=== PATIENT | female | born 1950 | race Caucasian/White ===

== ENCOUNTER 2022-09-20 08:39 | Outpatient (CLI) | payer MEDICARE, OTHER ==
--- NOTE | 2022-09-20 10:07 | SLEEP CARE CONSULTATION ---
Information from patient questionnaire entered by Inderjit Bruner. I have reviewed and concur with the information entered by Inderjit Bruner. This document represents the service I personally performed and the decisions made by me, Bernice Griggs MD, [facility]. History of Present Illness Service Date and Time: 09/20/2022 0839 Reason for Visit: New patient Chief Complaint: reports: Other (ROUTINE VISIT O2 LEVELS DROP) Usual bedtime: 9-10PM Time it takes to fall asleep: NOT SURE Snores at night: No Observed to quit breathing while asleep: No Sleeps alone due to snoring: Yes Number of times waking at night: 2-3 Reasons for waking at night: reports: Pain, Other (NOISE STRESS) Toss, Turn, or Twitch while sleeping: Yes Recalls having dreams: No Usually gets out of bed at: 4-430AM Feels refreshed in the morning: Yes Morning headache: No Sleepy or fatigued during the day: Yes Takes day naps: No Dreams during day naps: No Prior sleep studies: Yes Year and Where: [facility] Additional HPI information: I had the pleasure of seeing Ms. Marshall today regarding obstructive sleep apnea-hypopnea. As you know, she is a 71 year old lady who was diagnosed with the sleep-disordered breathing at [facility] in [place] about 12 years. The AHI was 5.4 and micki oxygen saturation, 92%. She was prescribed a CPAP device set at 5 10 cmH2O. She has a Respironics DreamStation 2 that is a replacement for her recalled DreamStation 1. She uses almost every night and all night. The compliance data show usage in 25 out of the past 30 nights, averaging 5.4 hours a night. The > 4 hour compliance rate for the past 30 days is 60%. The residual AHI is 0 and average air leak is 0 L/minute. She wears a ResMed AirTouch F-20 full face mask. She gets his supplies from [employer]. She finds the treatment very beneficial. - Parasomnia Symptoms Ever been unable to move upon waking from sleep: No Walks in sleep: No Talks in sleep: No Ever acted out dreams in sleep: No Ever felt weak in the knees when startled or emotional: No Bothered by creepy, crawly, restless sensations in legs: No Problems with memory or concentration: No Subjective Initial [place] Sleepiness Scale score: 11 (09/20/22) Past Medical History Past Medical History: reports: Arthritis, Asthma, Other (GLUXCOMA) Social History The patient's occupation is a [employer]. Patient is and lives in [place]. Have you smoked in the past 12 months: No Caffeine use: Yes Family History Family history of sleep disordered breathing: No Allergies and Home Medications Known drug allergies: Yes (SULFA, CODEINE) Drug allergies reviewed: Yes Home medication list reviewed: Yes Review of Systems Cardiovascular: reports: leg or foot swelling Respiratory: denies: shortness of breath, wheeze, sputum production, chronic cough, other Gastrointestinal: denies: heartburn, difficulty swallowing, nausea, vomitting, diarrhea, abdominal pain, other Urinary: denies: incontinence, frequency, urgency, impotence, other Neurological: reports: headaches Ear/Nose/Throat: reports: dry mouth/throat, wisdom teeth removed Endocrine: reports: thyroid disease, history of goiter, sluggishness Immunologic: reports: sneezing, itching Physical Exam Vital signs obtained and entered by: INDERJIT Lees MA Blood Pressure: 134/82 (LEFT ARM) Cuff size: regular Heart Rate: 72 O2 Saturation: 98 Height: 5 ft 5 in Weight: 156 lb 6.4 oz Body Mass Index: 26.0 BMI Classification: Overweight Neck circumference: 13 Mood/affect: Normal HEENT: No craniofacial malformation Nostrils: patent to airflow Turbinates: normal Septum: midline Mouth and throat: normal Soft palate: normal Hard palate: normal Uvula: normal Uvula visualization: 50% Mallampati Class II Tongue: normal in size Tonsils: absent bilaterally Chin and jaw: normal size and position Neck: normal w/o lymphadenopathy or thyromegaly Heart: regular rate and rhythm, murmur Lungs: clear bilaterally Abdomen: soft, non-tender Extremities: 1+ edema Neurologic: intact, no focal deficits Impression and Plan IMPRESSION: 1. Obstructive Sleep Apnea-Hypopnea Syndrome, mild, as previously diagnosed. The patient has [id number] compliance, but noticeable clinical improvement. She would like to continue to use her CPAP. The current pressure setting appears effective and comfortable. I encourage her to use the CPAP more, especially when she becomes eligible for a new machine next year. Plan: 1. Refill supplies. 2. Continue with autoCPAP set at 5 10 cmH2O. 3. Return for follow up in a year or earlier if there is any problem. She will be eligible for a new machine at that time. Prescriptions: Device supplies Follow up with Sleep Care in: 1 year Visit Type: In Office Time Spent with Patient (minutes): 15 Provider Statement: I spent 100% of the Face to Face Visit with the patient with greater than 50% spent counseling the patient and coordination of care.
[2022-09-20 10:10] VITALS: BP 134/82
== END 2022-09-20 08:40 | disposition home or self-care (01) ==
LOC: SC 08:39
PROVIDERS: ATTEND Internal Medicine Pulmonary Disease
DX: G47.33 Obstructive sleep apnea (adult) (pediatric) (principal); E66.3 Overweight; Z68.26 Body mass index [BMI] 26.0-26.9, adult
CPT/HCPCS: 99202; G0463; 99212

== ENCOUNTER 2023-05-03 10:09 | Outpatient (CLI) | payer MEDICARE, OTHER ==
--- NOTE | 2023-05-03 12:18 | XRAY Report ---
PROCEDURE: Foot 3+V RT (Weight Bearing) INDICATIONS: RIGHT FOOT PAIN TECHNIQUE: 3 weightbearing views of the right foot COMPARISON: None. FINDINGS: Small cortical irregularity at the lateral fifth proximal phalanx base. Mild hallux is herniation of the first MTP with medial bunion formation. Mild first MTP and interphalangeal joint degeneration. Mi ld pesplanus alignment. Mild plantar calcaneal enthesophyte. Surgical clips are seen projecting over the soft tissues along the dorsal aspect of the foot. IMPRESSION: 1.Small cortical irregularity of the lateral fifth proximal phalanx base, correlate with trauma, smal l fracture is not excluded. 2.Mild interphalangeal joint degeneration. 3.Hallux valgus configuration of the first MTP joint with medial bunion formation. 4.Mild pes planus alignment. Reviewed by: Medhat Jones MD on 05/03/2023 12:16 PM PST Approved by: Medhat Jones MD on 05/03/2023 12:16 PM PST Station ID: [id number]
== END 2023-05-03 10:10 | disposition home or self-care (01) ==
LOC: DI 10:09
PROVIDERS: ATTEND Podiatrist
DX: M19.071 Primary osteoarthritis, right ankle and foot (principal); M20.11 Hallux valgus (acquired), right foot; M21.611 Bunion of right foot; M21.41 Flat foot [pes planus] (acquired), right foot; R93.6 Abnormal findings on diagnostic imaging of limbs

== ENCOUNTER 2023-05-17 06:53 | Outpatient (CLI) | payer MEDICARE, OTHER ==
--- NOTE | 2023-05-17 13:36 | MRI Report ---
PROCEDURE: Foot RT WO INDICATIONS: R FOOT PAIN TECHNIQUE: Noncontrast sagittal T1 spin echo and T2 fast spin echo with fat saturation, long-axis T1 spin echo a nd T2 fast spin echo with fat saturation, short-axis proton density fast spin echo and T2 fast spin e cho with fat saturation through the forefoot. COMPARISON: Right foot radiographs 05/03/2023. FINDINGS: Image quality: Excellent. Bones and joints: No acute osseous fracture or trabecular bone injury. Mild hallux valgus. Mild/mode rate degenerative tenderness over the first metatarsophalangeal joint. Trace lateral subluxation of t he hallux sesamoids. Mild scattered degenerative changes of interphalangeal joints of the toes. Mild enhancement and is at the tarsometatarsal joints with areas of subpleural cystic changes. No intraoss eous lesions. Soft tissues: Mild edema is seen surrounding the central tendinous band of the abductor digiti minim i muscle at the level of the metatarsal base and proximal shaft. The visualized plantar foot muscles demonstrate normal signal and bulk. Visualized flexor and extensor tendons appear intact, without te nosynovitis. Mild subcutaneous edema or decreased adventitial bursal effusion plantar to the fifth me tatarsal head. Sagittal images demonstrate no evidence for plantar plate tears. IMPRESSION: 1.Mild hallux valgus. 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 2.Additional mild scattered degenerative changes in the midfoot and forefoot. 3.Mild intramuscular edema in the abductor digiti minimi muscle is suspicious for a low grade strain versus soft tissue contusion. 4.Mild subcutaneous edema versus trace adventitial bursal effusion in the subcutaneous tissues planta r to the fifth metatarsal head. Reviewed by: Jere Troy MD on 05/17/2023 1:35 PM PST Approved by: Jere Troy MD on 05/17/2023 1:35 PM PST Station ID: [id number]
== END 2023-05-17 06:54 | disposition home or self-care (01) ==
LOC: DI 06:53
PROVIDERS: ATTEND Podiatrist
DX: M20.11 Hallux valgus (acquired), right foot (principal); M19.071 Primary osteoarthritis, right ankle and foot; R93.6 Abnormal findings on diagnostic imaging of limbs; R93.89 Abnormal findings on diagnostic imaging of other specified body structures

== ENCOUNTER 2023-09-22 08:14 | Outpatient (CLI) | payer MEDICARE, OTHER ==
--- NOTE | 2023-09-22 08:45 | Sleep Patient Instructions ---
Sleep Center Visit Summary - Patient Visit Information Reason for Visit: Annual follow-up - Patient Instructions Additional Instructions: You will continue with CPAP therapy with pressure set at 5-10 cmH2O. A supply prescription will be updated with your DME. Please follow up with the sleep care office in 1 year. - Clinic Information Contact: [facility] [address] [place] [address] [email or web address] T: [phone]
--- NOTE | 2023-09-22 08:50 | SLEEP CARE CONSULTATION ---
Information from patient questionnaire entered by Inderjit Bruner. I have reviewed and concur with the information entered by Inderjit Bruner. This document represents the service I personally performed and the decisions made by me, Myesha Cooley ARNP. History of Present Illness Service Date and Time: 09/22/2023 0814 Previous diagnosis: Mild, Obstructive Sleep Apnea-Hypopnea Syndrome AHI: 5.4 (on 06/26/2010) Reason for follow up: annual (LAST SEEN 09/2022) Equipment type: CPAP (Dreamstation 2) Equipment obtained from: [employer] (in [place], [facility]) Mask style: Full face Mask brand: Resmed (AirTouch F20) Backup mask available: Yes Last cushion change: last week or so Prior sleep studies: Yes Year and Where: [facility] HPI additional information: STEPHENIE SHAH was diagnosed to have mild, AHI 5.4, obstructive sleep apnea- hypopnea syndrome and returned today for CPAP therapy annual follow-up. Sleep Study - Results Prior sleep studies: Yes Year and Where: [facility] CPAP Compliance Data - Data Reviewed with Patient Average duration of nightly device use: 5 hours 58 minutes Compliance rate %: 86.7 (06/24/2023-09/21/2023; 86/90 days used) Current pressure setting (cmH2O): 5-10 Average residual AHI: 0.8 Central apnea: 0.1 Obstructive apnea: 0.1 Hypopnea: 0.6 Average large leak: 0 secs Subjective Missed days of use due to: reports: family emergency Patient concerns: denies: aerophagia, mask discomfort, air blowing in eyes, mask leak noise, condensation in mask/hose, nasal congestion, dry mouth, nose, throat, epistaxis Observed to snore while using device: No Current pressure setting perceived as: comfortable On therapy, patient: reports: sleeping better, awakening more refreshed, being more awake and alert during the day, more rested overall. denies: drowsiness while driving (she is legally blind, does not drive) Initial [place] Sleepiness Scale score: 11 (09/20/22) Current [place] Sleepiness Scale score: 9 (09/22/23) Allergies and Home Medications Known drug allergies: Yes (as listed) Drug allergies reviewed: Yes Home medication list reviewed: Yes (no changes) Allergy and home medication list: Allergies codeine Allergy (Verified 09/21/23 07:42) Sulfa (Sulfonamide Antibiotics) Allergy (Verified 09/21/23 07:42) Review of Systems Review of systems same as previous: No (mild osteoporosis, mass on R. kidney) Physical Exam Vital signs obtained and entered by: INDERJIT Lees MA Blood Pressure: 144/82 (RIGHT ARM) Cuff size: regular Heart Rate: 80 O2 Saturation: 96 Height: 5 ft 5 in Weight: 151 lb 12.8 oz Body Mass Index: 25.2 BMI Classification: Overweight Impression and Plan 1. Obstructive Sleep Apnea-Hypopnea Syndrome, mild, with good treatment compliance and good apnea control. On CPAP therapy, the patient has better sleep quality and is more rested overall. Her about 7 weeks ago. She is sad but taking it a day at a time. She says she feels tired but feels that she is sleeping well. She has significant improvement of her sleep apnea and is comfortable with CPAP therapy. She denies problems with oral dryness, nasal congestion, epistaxis, skin irritation or aerophagia. Patient's apnea severity and rationale for treatment to reduce apnea, improve sleep quality and reduce cardiovascular and cerebrovascular events was reviewed. I also reviewed the benefit of consistent device use of CPAP for asthma. 2. Overweight, minimal. Currently patients BMI is 25.2. Obesity increases the risk of apnea, CPAP pressure requirements and overall health risks especially cardiovascular and diabetes. Thus patient is advised to maintain a healthy weight. * Continue auto CPAP pressure at 5-10 cmH2O * Updates supply prescription * Notify me if snoring with mask or feeling that the pressure is too much or too little * Call this office if any problems using CPAP * Return for follow up in 12 months, or sooner if concerns arise Counseling Topics: Spare mask, Weight control Prescriptions: Device supplies Follow up with Sleep Care in: 1 year Visit Type: In Office Time Spent with Patient (minutes): 20 Provider Statement: I spent 100% of the Face to Face Visit with the patient with greater than 50% spent counseling the patient and coordination of care.
[2023-09-22 08:51] VITALS: BP 144/82; O2SAT 96
== END 2023-09-22 08:15 | disposition home or self-care (01) ==
LOC: SC 08:14
PROVIDERS: ATTEND Nurse Practitioner Family
DX: G47.33 Obstructive sleep apnea (adult) (pediatric) (principal); E66.3 Overweight; Z68.25 Body mass index [BMI] 25.0-25.9, adult; Z63.4 Disappearance and death of family member
CPT/HCPCS: 99213; G0463; 99212